=== PATIENT | female | born 1985 ===

== ENCOUNTER 2024-08-27 14:39 | Outpatient (REF) | payer BC, SELFPAY ==
[2024-08-27 16:42] LABS: MANUAL DIFF FLAG NO
[2024-08-27 17:05] LABS: Basophils Absolute Auto 0.1 X10*3/uL (0.0-0.2); Basophils Percent Auto 0.8 % (0-2); Eosinophils Absolute Auto 0.1 X10*3/uL (0.0-0.4); Eosinophils Percent Auto 0.5 % (0-4); Hemoglobin 13.8 g/dl (12.0-16.0); Imm Gran Abs Auto 0.04 X10*3/uL (0.00-0.03); Imm Gran Pct Auto 0.4 % (0.0-0.4); Lymphocytes Absolute Auto 1.3 X10*3/uL (1.2-4.9); Lymphocytes Percent Auto 11.1 % (20-40); Mean Corpuscular HGB Conc 32.9 g/dl (31.0-35.0); Mean Corpuscular Hemoglobin 32.3 pg (27.0-33.0); Mean Corpuscular Volume 98.4 fL (80.0-98.0); Mean Platelet Volume 10.7 fL (9.4-12.3); Monocytes Absolute Auto 0.7 X10*3/uL (0.1-1.2); Monocytes Percent Auto 6.1 % (2-11); Neutrophils Absolute Auto 9.3 x10*3/uL (2.0-8.3); Neutrophils Percent Auto 81.1 % (45-73); Platelet Count 384 X10*3/uL (160-400); Red Blood Count 4.27 X10*6/uL (4.20-5.50); Red Cell Distribution Width 14.9 % (11.0-16.0); White Blood Count 11.4 X10*3/uL (4.8-10.8)
[2024-08-27 17:12] LABS: Estimated Average Glucose 108 mg/dL; Hemoglobin A1C 123.4311 umol/L; Hemoglobin A1c % 5.4 % (<6.0); Total Hemoglobin (HGBA1C) 3471.6163 umol/L
[2024-08-27 17:39] LABS: Alanine Aminotransferase 51 U/L (0-31); Alkaline Phosphatase 46 U/L (39-117); Anion Gap 17 (12-20); Aspartate Amino Transferase 82 U/L (5-31); Bilirubin Total 0.3 mg/dL (0.0-1.0); Blood Urea Nitrogen 8 mg/dL (9-16); C Reactive Protein 2.07 mg/dL (< or = 0.50); Calcium 9.7 mg/dL (8.4-10.2); Carbon Dioxide 28 mmol/L (22-29); Chloride 101 mmol/L (96-108); Estimated Glomerular Filt Rate > 60; Glucose Random 96 mg/dL (60-115); Potassium 3.6 mmol/L (3.3-5.1); Sodium 142 mmol/L (135-145); Total Protein 8.5 g/dL (6.5-8.0)
[2024-08-27 17:49] LABS: Ferritin 72 ng/mL (10-122); Vitamin D 25-OH Total 14.5 ng/mL (>30)
[2024-08-27 17:53] LABS: Folate 2.2 ng/mL (> or = 4.0); Vitamin B12 501 pg/mL (200-900)
[2024-08-27 18:33] LABS: Magnesium 1.3 mg/dL (1.6-2.6)
[2024-08-28 04:33] LABS: HBS Num1 > 1000.00 mIU/mL (0-7.99); HBsAGNum1 0.32 S/CO (0.00-0.99); Hepatitis A Antibody IgM 0.16 Index (0-0.79); Hepatitis B Core Antibody Nonreactive (Nonreactive); Hepatitis B Surface Antigen Negative (Negative); ~HepC Num1 0.12 S/CO (0.00-0.79); ~Hepatitis A Antibody IgM Nonreactive (Nonreactive); ~Hepatitis B Surface Antibody REACTIVE (Nonreactive); ~Hepatitis C Antibody Nonreactive (Nonreactive)
[2024-08-28 18:09] LABS: IgA 211 mg/dL (47-310); IgG 923 mg/dL (600-1640); IgM 247 mg/dL (50-300)
[2024-08-29 07:54] LABS: Transglutaminase Ab IgG <1.0 U/mL
[2024-08-29 11:14] LABS: Anti Nuclear Antibody Screen NEGATIVE (NEGATIVE)
[2024-08-29 15:18] LABS: Immunoglobulin G Subclass 1 392 mg/dL (382-929); Immunoglobulin G Subclass 2 268 mg/dL (241-700); Immunoglobulin G Subclass 3 33 mg/dL (22-178); Immunoglobulin G Subclass 4 42.9 mg/dL (4-86); Immunoglobulin G Total 812 mg/dL (600-1640)
[2024-08-29 23:03] LABS: Smooth Muscle Antibody <20 U (<20)
[2024-08-30 00:38] LABS: Zinc 55 mcg/dL (60-130)
[2024-08-30 21:29] LABS: Angiotensin Converting Enzyme 10 U/L (9-67)
[2024-08-30 21:33] LABS: Aldolase 10.5 U/L (<=8.1)
[2024-08-31 00:39] LABS: Alpha-Tocopherol 13.8 mg/L (5.7-19.9); Beta-Gamma Tocopherol 2.5 mg/L (<=4.3)
[2024-08-31 14:33] LABS: Soluble Liver Ag Autoantibody <20.1 U (0.0-20.0)
[2024-08-31 17:52] LABS: Vitamin A 55 mcg/dL (38-98); Vitamin B1 <6 nmol/L (8-30)
[2024-08-31 18:19] LABS: Arsenic, Blood <3 mcg/L (<23); Lead, Blood <1.0 mcg/dL (<3.5); Mercury, Blood <4 mcg/L (<=10)
[2024-09-01 17:58] LABS: FIB-ALT 45 U/L (6-29); FIB-Alpha-2-Macroglobulin 152 mg/dL (106-279); FIB-Apolipoprotein A1 127 mg/dL (101-198); FIB-GGT 213 U/L (3-50); FIB-Haptoglobin 418 mg/dL (43-212); FIB-Total Bilirubin 0.3 mg/dL (0.2-1.2); Liver Fibrosis Score 0.08; Liver Fibrosis Stage F0; Nec Inflam Act Grade A0-A1; Reference ID 5149724
[2024-09-01 19:24] LABS: Vitamin K1 529 pg/mL (130-1500)
[2024-09-02 14:08] LABS: Nicotinamide <20 ng/mL (see note); Vit B3 - Nicotinic Acid <20 ng/mL (see note); Vitamin B5 (Pantothenic Acid) 79 ng/mL (<275)
[2024-09-02 16:43] LABS: Vitamin B6 8.7 ng/mL (2.1-21.7)
[2024-09-02 17:04] LABS: Metanephrine, Free <25 pg/mL (<=57); Normetanephrines, Free 77 pg/mL (<=148); Total Metanephrine, Free 77 pg/mL (<=205)
[2024-09-04 11:29] LABS: Phosphatidylethanol 16:0-18:1 >400 (H); Phosphatidylethanol 16:0-18:2 >400 (H)
[2024-09-13 09:55] LABS: Ceruloplasmin 29
== END 2024-08-27 14:40 | disposition home or self-care (01) ==
LOC: HO.LAB 14:39
PROVIDERS: PCP Internal Medicine; Visit Provider Internal Medicine Gastroenterology
DX: R79.89 Other specified abnormal findings of blood chemistry (principal); E46 Unspecified protein-calorie malnutrition; R79.82 Elevated C-reactive protein (CRP); K75.81 Nonalcoholic steatohepatitis (NASH); Z91.018 Allergy to other foods; R10.33 Periumbilical pain; G89.29 Other chronic pain
CPT/HCPCS: 36415; 80053; 80321; 81596; 82085; 82103; 82164; 82175; 82180; 82306; 82390; 82550; 82607; 82728; 82746; 82784; 83036; 83520; 83655; 83735; 83825; 83835; 84207; 84425; 84446; 84590; 84591; 84597; 84630; 85025; 86003; 86015; 86038; 86140; 86364; 86704; 86706; 86709; 86803; 87340

== ENCOUNTER 2024-08-27 14:39 | Outpatient (AMB) | payer BC, SELFPAY ==
--- NOTE | 2024-08-27 14:41 | A.OFFVIS_ITS ---
Vital Signs 08/27/24 14:43 Height 5 ft 7 in Weight 207 lb 3.752 oz BMI 32.5 BP 180/120 H Blood Pressure Location Lt brachial Position Sitting Pulse 123 H Intake Visit Reasons: elevated liver enzymes Intake Note: Evelin presents in the office as a elevated LFTs. CC: Nausea, vomiting, bloating in the stomach - she throws up and has nothing in her system. She is gaining weight but unable to eat. Rag Boiler Required: No Allergies acetaminophen Allergy (Mild, Verified 08/27/24 14:46) Unknown cefaclor [From Ceclor] Allergy (Mild, Verified 08/27/24 14:46) Unknown tramadol Allergy (Mild, Verified 08/27/24 14:46) Unknown HPI HPI elevated liver enzymes: Details: HPI 38 yr old f here for assessment for abn LFT she has noted increased weight she has bloating, nausea she has vomiting even without food, bilious, no blood she denies constipation or diarrhea--no melena or rectal bleeding she denies vaginal sx she noted facial rash for last 1 yr, which is new she takes oxycondone 10 mg QID, at least BID for last few years she had egd with desilets, and was normal, GES with pos for gastroparesis CT 04/13- severe hepatic steatosis, no bowel inflammation ROS: Constitutional : No Weight loss, No Fever, No Chills ENT/Mouth : No sore throat, No Rhinorrhea Eyes: No Swelling, No Redness Cardiovascular : No Chest Pain, No SOB, No Edema Respiratory : No Cough, No Sputum, No Wheezing Gastrointestinal : see HPI Genitourinary : NO Dysuria, No Urinary Frequency, No Hematuria, No Urgency Musculoskeletal : + joint pain, No Myalgias, No Joint Swelling Skin : +facial rash Neuro : No Weakness, No Numbness, No Dizziness, + Headache--awaiting LARS testing Psych : No Anxiety/Panic, No Depression Heme/Lymph: No Bruising, No Lymphadenopathy Endocrine : No Polyuria, No Polydipsia All other systems reviewed and are negative. Medical History asthma HTN anxiety low b12 chronci back pain hypothyroid hx of low mag and low K Surgical History total knee replacement hiatal hernia surgery Family History mum has MM, AVM of brain, breast ca Social History non smoker, occ alcohol, no drugs EXAM: GENERAL: The patient is well developed and nontoxic. VITAL SIGNS:see workflow HEENT: Nonicteric sclerae, PERRLA, EOMI. Oropharynx clear. Moist mucous membranes. Conjunctivae appear well perfused. No thyroid mass. CHEST: Chest wall is nontender. HEART: Regular rate and rhythm without murmurs. LUNGS: Clear to auscultation bilaterally. ABDOMEN: Soft, positive bowel sounds, nontender, no organomegaly.no flank tenderness SKIN: roscea type rash face with mild acne NEUROLOGIC: Cranial nerves II-XII intact without motor/sensory deficit. Psych: normal affect A/P: 1/ Assortment of symptoms, posisbly med SE or systemic illness, criselda with hx of hypothyroidism, and HTN with palpitations, many possibilites, incl homone sec tumours, channalopathies given prior hx of low K and weakness x 2, raised MCV also PLAN: 1/ labs as below 2/ advised on alcohol abstinence 3/ check liver fibrosis score 4/ heavy metal screen 5/ she will monitor BP at home, PCP is watching 6 trial of movantik Physical Exam Vital Signs: Last Vital Signs Pulse 123 H 08/27/24 14:43 BP 180/120 H 08/27/24 14:43 BMI result Body Mass Index 32.5 Assessment & Plan Assessment & Plan (1) Abnormal LFTs: Code(s): R79.89 - Other specified abnormal findings of blood chemistry Category: Medical Plan: see above (2) Malnutrition: Code(s): E46 - Unspecified protein-calorie malnutrition Category: Medical Plan: see above Orders: Orders Aldolase Today E46 - Unspecified protein-calorie malnutrition, R79.89 - Other specified abnormal findings of blood chemistry Creatine Kinase Total Today E46 - Unspecified protein-calorie malnutrition, R79.89 - Other specified abnormal findings of blood chemistry Magnesium Today E46 - Unspecified protein-calorie malnutrition, R79.89 - Other specified abnormal findings of blood chemistry Vitamin A Today E46 - Unspecified protein-calorie malnutrition, R79.89 - Other specified abnormal findings of blood chemistry Vitamin B1 Today E46 - Unspecified protein-calorie malnutrition, R79.89 - Other specified abnormal findings of blood chemistry Vitamin B12 and Folate Today E46 - Unspecified protein-calorie malnutrition, R79.89 - Other specified abnormal findings of blood chemistry Vitamin B5 (Pantothenic Acid) Today E46 - Unspecified protein-calorie malnutrition, R79.89 - Other specified abnormal findings of blood chemistry Vitamin C Today E46 - Unspecified protein-calorie malnutrition, R79.89 - Other specified abnormal findings of blood chemistry Vitamin D 25-OH Total Today E46 - Unspecified protein-calorie malnutrition, R79.89 - Other specified abnormal findings of blood chemistry Vitamin E Today E46 - Unspecified protein-calorie malnutrition, R79.89 - Other specified abnormal findings of blood chemistry Vitamin K1 Today E46 - Unspecified protein-calorie malnutrition, R79.89 - Other specified abnormal findings of blood chemistry SADIA Reflex Titer and Pattern Today E46 - Unspecified protein-calorie malnutrition, R79.82 - Elevated C-reactive protein (CRP), R79.89 - Other specified abnormal findings of blood chemistry Angiotensin Converting Enzyme Today E46 - Unspecified protein-calorie malnutrition, R79.89 - Other specified abnormal findings of blood chemistry Smooth Muscle Antibody Today E46 - Unspecified protein-calorie malnutrition, R79.89 - Other specified abnormal findings of blood chemistry Immunoglobulins,IgG IgA IgM Today E46 - Unspecified protein-calorie malnutrition, R79.89 - Other specified abnormal findings of blood chemistry Transglutaminase Ab IgG Today E46 - Unspecified protein-calorie malnutrition, G89.29 - Other chronic pain, R10.33 - Periumbilical pain, R79.89 - Other specified abnormal findings of blood chemistry Comprehensive Met. Panel Today E46 - Unspecified protein-calorie malnutrition, K75.81 - Nonalcoholic steatohepatitis (NAVARRO), R79.89 - Other specified abnormal findings of blood chemistry C Reactive Protein Today E46 - Unspecified protein-calorie malnutrition, R79.89 - Other specified abnormal findings of blood chemistry Heavy Metals Screen Blood Today E46 - Unspecified protein-calorie malnutrition, R79.89 - Other specified abnormal findings of blood chemistry Porphyrins Fractionated 24Hr Today E46 - Unspecified protein-calorie malnutrition, R79.89 - Other specified abnormal findings of blood chemistry Ferritin Today E46 - Unspecified protein-calorie malnutrition, R79.89 - Other specified abnormal findings of blood chemistry Vitamin B3 (Niacin) Today E46 - Unspecified protein-calorie malnutrition, R79.89 - Other specified abnormal findings of blood chemistry Vitamin B6 Today E46 - Unspecified protein-calorie malnutrition, R79.89 - Other specified abnormal findings of blood chemistry Zinc Today E46 - Unspecified protein-calorie malnutrition, R79.89 - Other specified abnormal findings of blood chemistry Metanephrines, Plasma Today E46 - Unspecified protein-calorie malnutrition, R79.89 - Other specified abnormal findings of blood chemistry Alpha 1 Anti-trypsin Today E46 - Unspecified protein-calorie malnutrition, R79.89 - Other specified abnormal findings of blood chemistry Rast Allergen Today E46 - Unspecified protein-calorie malnutrition, R79.89 - Other specified abnormal findings of blood chemistry, Z91.018 - Allergy to other foods Soluble Liver Ag Autoantibody Today E46 - Unspecified protein-calorie malnutrition, R79.89 - Other specified abnormal findings of blood chemistry Hepatitis A,B,C Profile Today E46 - Unspecified protein-calorie malnutrition, R79.89 - Other specified abnormal findings of blood chemistry Immunoglobulin G Subclasses Today E46 - Unspecified protein-calorie malnutrition, R79.89 - Other specified abnormal findings of blood chemistry Ceruloplasmin Today E46 - Unspecified protein-calorie malnutrition, R79.89 - Other specified abnormal findings of blood chemistry Other Ref Test - Misc Today E46 - Unspecified protein-calorie malnutrition, R79.89 - Other specified abnormal findings of blood chemistry Complete Blood Count Auto Diff Today E46 - Unspecified protein-calorie malnutrition, R79.89 - Other specified abnormal findings of blood chemistry Liver Fibrosis Pnl Today E46 - Unspecified protein-calorie malnutrition, R79.89 - Other specified abnormal findings of blood chemistry Hemoglobin A1c Today E46 - Unspecified protein-calorie malnutrition, R79.89 - Other specified abnormal findings of blood chemistry Metanephrines, 24hr Urine Today E46 - Unspecified protein-calorie malnutrition, R79.89 - Other specified abnormal findings of blood chemistry Cortisol, Free 24Hr Urine Today E46 - Unspecified protein-calorie malnutrition, R79.89 - Other specified abnormal findings of blood chemistry 5-HIAA 24 Hour Urine Today E46 - Unspecified protein-calorie malnutrition, R79.89 - Other specified abnormal findings of blood chemistry Medications: New naloxegol (Movantik) must be taken on empty stomach; no food 1 hr after or 2-3 hrs before dose 25 mg PO QAM 30 tabs 2RF Coding Level of Care Code New Pt Level 4 (77670) Diagnoses Abnormal LFTs . Malnutrition E46
[2024-08-27 14:43] VITALS: BP 180/120; PULSE 123; BMI 32.5
== END 2024-08-27 16:00 | disposition home or self-care (01) ==
PROVIDERS: PCP Internal Medicine; Visit Provider Internal Medicine Gastroenterology
DX: R79.89 Other specified abnormal findings of blood chemistry (principal); E46 Unspecified protein-calorie malnutrition
CPT/HCPCS: 99204